=== PATIENT | male | born 1955 | race Two or more races ===

== ENCOUNTER 2021-06-13 01:59 | Inpatient (IN) | payer OTHER, SELFPAY ==
[2021-06-13] VITALS (11 sets, daily range): BP systolic 88–111; BP diastolic 64–79; PULSE 74–100; RESP 14–18; TEMP 36.4–37.7; O2SAT 2–100; BMI 24.1
[2021-06-13] MEDS: 0.9% Normal Saline 1,000 ML 125 ML IV ×3 (02:19→22:02)
[2021-06-13] MEDS: 0.9% Saline Lock 10 ML Syringe IV (02:19)
[2021-06-13] MEDS: Morphine 2 MG/ML Syringe IV ×2 (02:22→13:58)
--- NOTE | 2021-06-13 06:00 | EKG12_ITS ---
Test Reason : A.M. EKG Blood Pressure : / mmHG Vent. Rate : 102 BPM Atrial Rate : 102 BPM P-R Int : 196 ms QRS Dur : 076 ms QT Int : 328 ms P-R-T Axes : 035 067 020 degrees QTc Int : 427 ms Sinus tachycardia Otherwise normal ECG No previous ECGs available Confirmed by REAL REDD, MIKE ([id number]), order editor ADAIR MARTINEZ ([id number]) on 06/16/2021 10:43:15 AM Referred By: DAVIDE Confirmed By:MIKE NOBLE MD
--- NOTE | 2021-06-13 06:46 | PCM.HP.STD ---
HPI - General General Date of Admission: 06/13/21 HPI Narrative SYED MOONEY, is a 66 M who presents as a transfer from [facility] [place]. Patient reports that he started having abdominal pain yesterday morning. He reports no fevers or chills. The pain is in his right lower quadrant. He denies any nausea or vomiting. [facility] Medical History (Updated 06/13/21 @ 06:[address] Anupam Toth MD) Former smoker Loose, teeth Home Medications multivitamin 1 tab PO DAILY 06/13/21 [History Last Taken Unknown] Allergy/AdvReac Type Severity Reaction Status Date / Time No Known Allergies Allergy Verified 06/13/21 01:31 Surgical History History of shoulder surgery Social History Smoking Status: Former smoker ROS Constitutional Constitutional: Denies anorexia or fatigue Eyes Eyes: Denies blurry vision ENT HEENT: Denies abnormal hearing Cardiovascular Cardiovascular: Denies chest pain Respiratory/Chest Respiratory/Chest: Denies cough or dyspnea Gastrointestinal Gastrointestinal: Reports abdominal pain; Denies diarrhea, nausea or vomiting Genitourinary Genitourinary: Denies change in urinary stream Musculoskeletal Musculoskeletal: Denies abnormal gait Integumentary Integumentary: Denies jaundice Neurologic Neurologic: Denies dizziness Psychiatric Psychiatric: Denies anxiety Endocrine Endocrinology: Denies flushing Vital Signs Vital Signs Vital Signs: 06/13/21 01:46 06/13/21 01:52 Temperature 98.3 F Temperature Source Oral Pulse Rate 100 Respiratory Rate 18 Respiratory Effort Normal Respiratory Depth Normal Respiratory Pattern Normal Blood Pressure 102/78 Blood Pressure Mean 86 Pulse Ox 94 Oxygen Delivery Method Room Air Room Air Weight Weight: 158 lb 15.253 oz Body Mass Index (BMI) 24.1 Physical Exam Const alert and oriented x3 Resp normal respiratory effort and normal air movement Cardio regular rate and regular rhythm GI soft to palpation and non-distended Palpation: tender RLQ Assessment & Plan Assessment/Plan (1) Acute appendicitis: QUALIFIERS: Acute appendicitis type: unspecified acute appendicitis type Qualified Code(s): K35.80 - Unspecified acute appendicitis PLAN: Patient was transferred from outside hospital with a CT read that showed acute appendicitis. Patient was given antibiotics overnight and transferred here and he will be taken service morning. I discussed surgery with him in detail. I discussed laparoscopic appendectomy and the risks including allergy bleeding, infection, injury to underlying organs. Patient understands risks as well to proceed with laparoscopic appendectomy. Anupam Toth MD Pager: [facility] [address] [place] [address] [address] [place] [address] Office:
--- NOTE | 2021-06-13 07:36 | NURSING ---
pt to surgery
[2021-06-13] MEDS: Lactated Ringers 1,000 ML 100 ML IV ×2 (08:00→09:27)
--- NOTE | 2021-06-13 08:20 | APP_PTH ---
PATIENT: SYED MOONEY LOC: MS3 U#:[id number] AGE/SX: 66/M [place]: [facility] [place]13/[address]: Dr. Anupam Toth MD : [id number] BED: 1 DIS: 06/15/2021 SPEC #: [id number] RECD: 06/15/21 07:31 STATUS: SAMMIE RORY #: [id number] HEIDI: 06/13/21 08:[address]: Anupam Toth DEPT: SURGICAL PATHOLOGY RECD BY: Christen Goldman Tissues: Appendix, NOS Procedures: Surgery Specimen Level III HEADER OPERATION: Laparoscopic appendectomy PRE-OP DIAGNOSIS: Acute appendicitis TISSUE SUBMITTED: Appendix MICROSCOPIC DIAGNOSIS Appendix, appendectomy: Acute appendicitis and periappendicitis. VANE:olegario 06/16/2021 MICROSCOPIC DESCRIPTION Slides are reviewed. GROSS DESCRIPTION Received in fixative is one container labeled with the patient's name and designated appendix. The specimen consists of an appendix measuring 5.5 cm in length and 0.7 cm in average diameter. The attached fibrofatty tissue is grayish-miranda in color. No gross perforations are evident. Serial sections reveal a patent lumen. Evaporator sections are submitted in one cassette. / AM:olegario 06/15/2021 TC:2 CPT: 32159
[2021-06-13] MEDS: Bupivacaine 0.25% 30 ML Vial (08:43)
--- NOTE | 2021-06-13 08:53 | PCM.OPRPT ---
Problems Associated Problem List Diagnoses (1) Acute appendicitis: Report of Operation Date of Procedure: 06/13/21 Pre-Operative Diagnosis: Appendicitis Post-Operative Diagnosis: Acute purulent appendicitis with peritonitis Surgery/Procedure Performed:: Laparoscopic appendectomy Specimen's removed: Appendix Drains: PATI to bulb suction Description of Procedure: The patient was brought into the operating room and general anesthesia was induced. The left arm was tucked and the abdomen was prepped and draped in usual sterile fashion. A small midline incision was made superior to the umbilicus and deepened to the level of the fascia. The fascia was elevated and incised. The peritoneum was also elevated and incised. A finger sweep was performed and a balloon trocar was placed into the abdomen and inflated. The abdomen was insufflated to 15 mmHg and the camera was inserted and the abdomen was inspected for any injuries upon entering the abdomen. There were none. The patient was placed in Trendelenburg position and a 5 mm ports placed in the left lower quadrant and suprapubic areas under direct visualization. Next using atraumatic bowel graspers the appendix was identified. The appendix was grasped and elevated and Enseal was used to take down the mesoappendix. A stapler was used to come across the base of the appendix. The appendix was then placed in Endo Catch bag and removed through the umbilical incision. The staple line was inspected and found to be hemostatic and intact. There was purulent material in the abdomen. This was irrigated and suctioned. A 15 Surinamese round drain was placed through the left lateral port after the port was removed and it was positioned in the pelvis. It was sutured to the skin using 3-0 nylon. He was placed to bulb suction after the case. The 2 5 mm ports are removed under direct visualization. The balloon trocar was deflated and removed and all the air was removed from the abdomen. The umbilical incision fascia was closed with an 0 Vicryl [id number] suture. The incisions were then irrigated with saline and dried. Local anesthetic was injected into the incision sites. The skin incisions were then closed with interrupted 4-0 Monocryl suture and Steri-Strips. Bandages were applied and the patient was awoken and taken to PACU in stable condition. Patient tolerated the procedure well. Admit VTE Documentation VTE Mechan Device Prophylaxis: SCD's
--- NOTE | 2021-06-13 13:15 | CASEMGMT ---
SHUN YOUNG Face to Face with patient for initial transition planning/care coordination assessment. RN HCETOR introduced self and role at [facility]. Patient lying in bed, alert and oriented. Patient willing to participate in assessment and is able to answer all questions appropriately. Care providers, pharmacy, and demographics verified. Patient wishes to discharge home, denies need for home health at this time. Patient states he has no further needs or concerns at this time. CM to follow for discharge planning needs that may arise. PCP: Patient states he see PCP in [place] Specialists: none Preferred Pharmacy: [facility] [place] Insurance: [place] Prescription Benefit: yes Living Will/HPOA: none LNOK: Living Arrangements: Patient lives with in a 2 story home. Patient states he is independent at home and able to ambulate stairs. Transportation: self, DME/HHC: Patient states he has crutches at home. Disposition Plan: Patient to discharge home with family support and follow-up plans in place. Jadyn AKERS, RN, CM
[2021-06-13] MEDS: Piperacil/Tazobactam 3.375 GM/50 ML ML IV ×2 (13:55→22:20)
[2021-06-14 02:00] VITALS: BP 104/81; PULSE 76; RESP 16; TEMP 36.9; O2SAT 94
[2021-06-14] MEDS: Piperacil/Tazobactam 3.375 GM/50 ML ML IV ×3 (05:58→21:06)
[2021-06-14] MEDS: 0.9% Normal Saline 1,000 ML 125 ML IV (05:59)
[2021-06-14 06:08] LABS: Absolute Lymphocyte Count 0.53 X10^3/uL (0.83-4.51); Absolute Neutrophil Count 6.8 X10^3/uL (2.0-7.7); Basophil# 0.01 X10^3/uL; Basophil% 0.1 % (0-1); Eosinophil# 0.01 X10^3/uL; Eosinophils% 0.1 % (0-5); Hematocrit 31.5 % (40-54); Hemoglobin 10.9 g/dL (13.0-16.5); Lymphocyte # 0.53 X10^3/ul (0.83-4.51); Lymphocyte % 6.7 % (19-41); Mean Corp Hgb Conc 34.6 g/dL (32-36); Mean Corpuscular Hgb 28.5 pg (27.0-32.0); Mean Corpuscular Volume 82.2 fL (80-94); Mean Platelet Vol. 9.9 fl (6.2-12.0); Monocyte# 0.51 X10^3/uL; Monocyte% 6.5 % (0-10); NRBC Flagged by Analyzer 0 % (0-5); Neutrophil # 6.77 X10^3/uL (2.7-7.7); Neutrophil % 86.2 % (47-70); POSITIVE DIFFERENTIAL YES; Platelet Count 148 K/mm3 (150-450); RBC Distribution Width CV 13.8 % (11.6-14.6); RBC Distribution Width SD 40.7 fl (35.1-43.9); Red Blood Count 3.83 M/mm3 (4.6-6.2); White Blood Count 7.9 K/mm3 (4.4-11.0)
[2021-06-14 06:10] LABS: Differential Indicated SCAN CRITERIA MET
[2021-06-14 06:27] LABS: Anion Gap 4 (5-15); BUN 14 mg/dL (7-18); BUN/Creat Ratio 14.5 RATIO (10-20); Calcium,Total 8.8 mg/dL (8.5-10.1); Chloride 109 mmol/L (98-107); Creatinine, Serum 0.97 mg/dL (0.70-1.30); EST Glomerular Filtration Rate 83 mL/min (>60); Est Glom Filt Rate - Afr Amer 100 mL/min (>60); Estimated Creatinine Clearance 73.45 ml/min; Glucose 114 mg/dL (74-106); Potassium 3.7 mmol/L (3.5-5.1); Sodium Level 139 mmol/L (136-145)
[2021-06-14 07:03] LABS: Differential Comment SCANNED
[2021-06-14 07:34] VITALS: BP 128/96; PULSE 80; RESP 16; TEMP 36.6; O2SAT 96
--- NOTE | 2021-06-14 08:47 | PN.SURG_ITS ---
Subjective Subjective Patient reports he has passed some flatus. He is urinating a large amount. He is not having any nausea or vomiting. Objective Data Objective Data Vital Signs: Vital Signs Temp Pulse Resp BP Pulse Ox 97.9 F 80 16 128/96 H 96 06/14/21 07:34 06/14/21 07:34 06/14/21 07:34 06/14/21 07:34 06/14/21 07:34 Oxygen Flow Rate (L/min) 2 Oxygen Delivery Method Room Air Weight: 158 lb 15.253 oz Body Mass Index (BMI) 24.1 Intake & Output: Intake and Output for Last 24 Hours 06/12/21 06/13/21 06/14/21 23:59 23:59 23:59 Intake Total 3608.42 / 3633.42 1611.42 / 1611.42 Output Total 100 / 100 Balance 3508.42 / 3533.42 1611.42 / 1611.42 Lab / Micro Data Result Diagrams: 06/14/21 05:48 06/14/21 05:48 Labs: Laboratory Results - last 24 hr 06/14/21 05:48: WBC 7.9, RBC 3.83 L, Hgb 10.9 L, Hct 31.5 L, MCV 82.2, MCH 28.5, MCHC 34.6, RDW Std Deviation 40.7, RDW Coeff of Adrian 13.8, Plt Count 148 L, MPV 9.9, Immature Gran % (Auto) 0.400, Neut % (Auto) 86.2 H, Lymph % (Auto) 6.7 L, Bleckley % (Auto) 6.5, Eos % (Auto) 0.1, Baso % (Auto) 0.1, Absolute Neuts (auto) 6.8, Absolute Lymphs (auto) 0.53 L, Nucleated RBC % 0, Differential Comment SCANNED 06/14/21 05:48: Sodium 139, Potassium 3.7, Chloride 109 H, Carbon Dioxide 26.0, Anion Gap 4 L, BUN 14, Creatinine 0.97, Estim Creat Clear Calc 73.45, Est GFR (MDRD) Af Amer 100, Est GFR (MDRD) Non-Af 83, BUN/Creatinine Ratio 14.5, Glucose 114 H, Calcium 8.8 Micro: Microbiology 06/13/21 06:25 Nasal Secretion SARS-CoV-2 Antigen (Rapid) - Final Physical Exam Const oriented x3 and no apparent distress Resp normal respiratory effort Cardio regular rate and regular rhythm GI soft to palpation GI Narrative: Mildly distended Assessment & Plan Assessment/Plan (1) Acute appendicitis: QUALIFIERS: Acute appendicitis type: unspecified acute a ppendicitis type Qualified Code(s): K35.80 - Unspecified acute appendicitis PLAN: Patient does report that he is passing some flatus. I will advance him to a clear liquid diet and if he does well with this may be try regular food this evening. Keep his PATI in for another 24 hours and plan for discharge possibly tomorrow. Continue antibiotics and stop IV fluids. Continue incentive spirometer and Lovenox. Anupam Toth MD Pager: [facility] [address] [place] [address], [address] [place] [address] Office:
[2021-06-14] MEDS: Acetaminophen 325 MG Tablet 650 MG PO (13:47)
[2021-06-14 13:54] VITALS: BP 150/102; PULSE 71; RESP 16; TEMP 36.3; O2SAT 97
[2021-06-14 21:01] VITALS: BP 131/94; PULSE 65; RESP 18; TEMP 36.8; O2SAT 97
[2021-06-15 03:35] VITALS: BP 127/85; PULSE 65; RESP 18; TEMP 37.2; O2SAT 95
[2021-06-15] MEDS: Acetaminophen 325 MG Tablet 650 MG PO (03:50)
[2021-06-15] MEDS: Piperacil/Tazobactam 3.375 GM/50 ML ML IV (05:56)
--- NOTE | 2021-06-15 07:37 | PN.SURG_ITS ---
Subjective Subjective Patient reports doing well and his pain is well controlled. He is passing flatus. He tolerated clears yesterday. Objective Data Objective Data Vital Signs: Vital Signs Temp Pulse Resp BP Pulse Ox 98.9 F 65 18 127/85 H 95 06/15/21 03:35 06/15/21 03:35 06/15/21 03:35 06/15/21 03:35 06/15/21 03:35 Oxygen Flow Rate (L/min) 2 Oxygen Delivery Method Room Air Weight: 158 lb 15.253 oz Body Mass Index (BMI) 24.1 Intake & Output: Intake and Output for Last 24 Hours 06/13/21 06/14/21 06/15/21 23:59 23:59 23:59 Intake Total 3608.42 / 3633.42 2911.42 / 2911.42 50 / 50 Output Total 100 / 100 40 / 40 Balance 3508.42 / 3533.42 2871.42 / 2871.42 30 / 30 Lab / Micro Data Result Diagrams: 06/14/21 05:48 06/14/21 05:48 Micro: Microbiology 06/13/21 06:25 Nasal Secretion SARS-CoV-2 Antigen (Rapid) - Final Physical Exam Const oriented x3 and no apparent distress Cardio regular rate and regular rhythm GI soft to palpation and non-tender Assessment & Plan Assessment/Plan (1) Acute appendicitis: QUALIFIERS: Acute appendicitis type: unspecified acute appendicitis type Qualified Code(s): K35.80 - Unspecified acute appendicitis PLAN: Patient reports doing well. I removed his drain this morning. I will advance him to a transitional diet. As long as he tolerates this I will discharge him home later today. Anupam Toth MD Pager: [facility] [address] [place] [address], [address] [place] [address] Office:
--- NOTE | 2021-06-15 07:39 | EX.PCM.DISCH ---
Discharge Instructions Procedure Appendectomy Diet Discharge Diet: Light diet - advance as tolerated Activity Discharge Activity: May Not Drive (for 2-3 days or while taking narcotic pain medications.) and May Shower Lifting Restrictions: 20 lbs for 2 weeks Dressing / Incision Call your doctor if your incision/area has: Continuous Slow Oozing, Sudden Increased Bleeding, Increased Pain/ Swelling, Increased Redness and Foul Smelling Discharge Call your doctor if you observe: Fever of 101 or Higher Suture Line Care: Avoid Pulling/Pushing and Avoid Pinching/Bending Remove Dressing in: 1 week (Remove steri strips in 7-10 days, remove drain bandage in 1 day) Cleanse incision/area with: Soap & Water Follow Up Care Please Follow Up With: Anupam Toth MD When: Please call to schedule 2 week follow up appointment. [phone] Test Results: Test results from this visit will be discussed in further detail at your follow-up appointment, if applicable. Discharge Plan Admission Admit Date/Time: 06/13/21 01:59 Attending Provider: Anupam Toth Discharge Orders/Prescriptions Prescriptions: No Action multivitamin Tablet 1 tab PO DAILY RF: 0
--- NOTE | 2021-06-15 07:40 | PCM.DC.SUM ---
Providers Date of Admission: 06/13/21 Reason For Visit: ACUTE APPENDICITIS Diagnosis Discharge Diagnosis (1) Acute appendicitis: Status: Acute Code(s): K35.80 - Unspecified acute appendicitis Qualifiers: Acute appendicitis type: unspecified acute appendicitis type Qualified Code(s): K35.80 - Unspecified acute appendicitis Medications at Discharge Home Medications multivitamin 1 tab PO DAILY 06/13/21 acetaminophen [Tylenol] 650 mg PO Q4H PRN PRN #0 tab 06/15/21 amoxicillin-pot clavulanate 1 tab PO BID 5 Days #10 tab 06/15/21 Hospital Course Operations appendectomy Summary of Care Provided Hospital Course: Patient was admitted as a transfer from outside hospital with acute appendicitis. Upon surgery he was found to have purulent material in the abdomen and a drain was placed and the appendix was removed. Patient is doing well postoperatively and was slowly advanced on a diet and then drain was removed. Patient was discharged home in stable condition. Weight / BMI Weight Weight: 158 lb 15.253 oz Body Mass Index (BMI) 24.1 ABG / Lab / Microbiology Data Result Diagrams: 06/14/21 05:48 06/14/21 05:48 Microbiology: Microbiology 06/13/21 06:25 Nasal Secretion SARS-CoV-2 Antigen (Rapid) - Final D/C Instructions Discharge Diet: Light diet - advance as tolerated Discharge Activity: May Not Drive (for 2-3 days or while taking narcotic pain medications.) and May Shower Lifting Restrictions: 20 lbs for 2 weeks Call your doctor if your incision/area has: Continuous Slow Oozing, Sudden Increased Bleeding, Increased Pain/ Swelling, Increased Redness and Foul Smelling Discharge Call your doctor if you observe: Fever of 101 or Higher Suture Line Care: Avoid Pulling/Pushing and Avoid Pinching/Bending Remove Dressing in: 1 day (Remove gauze bandage in 1 day. Remove Steri-Strips in 7 to 10 days.) Cleanse incision/area with: Soap & Water Please Follow Up With: Anupam Toth MD When: Please call to schedule 2 week follow up appointment. [phone] Meaningful Use Info Meaningful Use Diagnoses (Choose all that apply): None applicable Discharge Plan Admission Admit Date/Time: 06/13/21 01:59 Attending Provider: Anupam Toth Discharge Orders/Prescriptions Prescriptions: New acetaminophen [Tylenol] 325 mg Tablet 650 mg PO Q4H PRN PRN (Reason: Pain Score 1-10/Fever) Qty: 0 RF: 0 amoxicillin-pot clavulanate 875-125 mg Tablet 1 tab PO BID 5 Days Qty: 10 RF: 0 Continued multivitamin Tablet 1 tab PO DAILY RF: 0 Disposition Disposition (needs filled in before D/C Order can be placed): Home, Self Care
[2021-06-15 08:22] VITALS: BP 142/99; PULSE 65; RESP 18; TEMP 36.5; O2SAT 97
[2021-06-15] MEDS: Enoxaparin 40 MG/0.4 ML Syringe SC (10:14)
[2021-06-15] MEDS: Amox/Clavulanate 875 MG Tablet PO (10:14)
== END 2021-06-15 10:47 | disposition home or self-care (01) | DRG 343 ==
PROVIDERS: Admitting Provider Surgery; Visit Provider Surgery
PROC: 0DTJ4ZZ Resection of Appendix, Percutaneous Endoscopic Approach (ICD-10-PCS; CPT 44970; principal; 2021-06-13 08:00)
DX: K35.30 Acute appendicitis with localized peritonitis, without perforation or gangrene (principal); Z20.822 Contact with and (suspected) exposure to COVID-19; Z87.891 Personal history of nicotine dependence
CPT/HCPCS: 36415; 80048; 85025; 87811; 88304; 93005; J7030; J7050; J7120; A4216; C1760; J2405